=== PATIENT | male | born 1960 | race Caucasian/White ===

== ENCOUNTER 2021-03-12 09:33 | Emergency (ER) | payer MEDICARE ==
[2021-03-12] MEDS ORDERED: CLEOCIN HCL300 MG PO (12:38)
[2021-03-12] MEDS ORDERED: CEPHALEXIN500 MG PO (12:38)
== END 2021-03-12 12:56 | disposition home or self-care (01) ==
LOC: ER1 09:33
DX: L02.414 Cutaneous abscess of left upper limb (principal)
CPT/HCPCS: 10060; 99282